=== PATIENT | male | born 1975 | race Two or more races ===

== ENCOUNTER 2017-03-18 16:30 | Inpatient (IN) | payer BC ==
[~2017-03-18] VITALS: Ht 172.7 cm; Wt 30.8 kg
[2017-03-18 16:37] VITALS: BP 126/94
--- NOTE | 2017-03-18 16:43 | Emergency Room Report ---
History of Present Illness General Chief Complaint: Abdominal Pain Source: Patient, Significant Other, EMS Present Illness HPI Patient presents with abdominal pain. It started last night. He returned from [place] yesterday. He's felt nauseated. He's not been moving his bowels. The pain is severe. It doesn't radiate. He denies any fevers but feels chilled. Denies any upper respiratory symptomatology. He was drinking a lot of alcohol. He was not taking in fluids. The patient has a history of dilated cardiomyopathy left bundle branch block. On multiple medications. Didn't take anything for pain but took lorazepam. Slight relief with this. Not suicidal, but knows should not drink alcohol because of cardiomyopathy. Has been through rehab. Allergies: Coded Allergies: No Known Allergies (Unverified , 03/18/17) Patient History Past Medical History: see triage record Pertinent Family History: other - alcoholic brother with necrotic pancreatitis Social History: Reports: alcohol use, Denies: smoking Social History Narrative Reviewed Nursing Documentation: PMH: Agreed, PSxH: Agreed Nursing Documentation-PMH Past Medical History: No History, Except For Hx Cardiac Problems: Yes History Of Psychiatric Problem: Yes - ANXIETY Review of Systems All Other Systems: negative except mentioned in HPI Physical Exam Vital Signs Date Time Temp Pulse Resp B/P Pulse Ox O2 Delivery O2 Flow Rate FiO2 03/18/17 16:34 118 18 126/94 98 Room Air Sp02 EP Interpretation: reviewed, normal General Appearance: GCS 15, mild distress, Chronically Ill Head: normocephalic Eyes: bilateral eye PERRL, bilateral eye normal inspection ENT: moist mucus membranes Neck: supple Respiratory: lungs clear, normal breath sounds Cardiovascular #1: regular rate, rhythm Cardiovascular #2: 2+ radial (R) Gastrointestinal: normal inspection, no mass, no guarding, no rebound, abnormal bowel sounds - decreased, distended, tenderness - epigastric and fairly diffuse, but soft Musculoskeletal: back normal, gait/station normal, normal range of motion Neurologic: alert, oriented x3, grossly normal Psychiatric: depressed affect Skin: warm/dry, other - sallo Medical Decision Making Diagnostic Impression: Primary Impression: Pancreatitis, acute Qualified Codes: K85.20 - Alcohol induced acute pancreatitis without necrosis or infection Additional Impressions: Polycythemia Cardiomyopathy Qualified Codes: I42.9 - Cardiomyopathy, unspecified ER Course Patient presents with severe abdominal pain after return from trip to [place]. Ddx; appendicitis, diverticulitis, traveller's GI'tis, PUD, gastritis, pancreatitis, hepatitis amongst others. With cardiomyopathy, concern over cor involvement. Evaluation with EKG, CXR, labs, CT. Cardiomyopathy seems compensated, though not taking in fluids. Plan hydration cautiously. Treat with analgesia. Labs with polycythemia, elevated lipast, renal insufficiency. CXR unremarkable. CT with standing of pancreas. Discussed with patient and of alcohol's involvement (they are both aware). Discussed JUAN DANIEL and Soheila.. Admit tele (because of h/o cardiomyopathy), Dr. Ponce. Improved with hydration and treatment. Laboratory Tests Test 03/18/17 17:00 03/18/17 18:10 03/18/17 19:09 White Blood Count 9.1 K/UL (4.8-10.8) Red Blood Count 3.89 M/UL (4.70-6.10) L Hemoglobin 22.5 G/DL (14.2-18.0) *H Hematocrit 68.0 % (42.0-52.0) H Mean Corpuscular Volume 180 FL (80-99) H Mean Corpuscular Hemoglobin 57.8 PG (27.0-31.0) H Mean Corpuscular Hemoglobin Concent 33.0 G/DL (32.0-36.0) Red Cell Distribution Width 14.8 % (11.6-14.8) Platelet Count 168 K/UL (150-450) Mean Platelet Volume 9.9 FL (6.5-10.1) Neutrophils (%) (Auto) % (45.0-75.0) Lymphocytes (%) (Auto) % (20.0-45.0) Monocytes (%) (Auto) % (1.0-10.0) Eosinophils (%) (Auto) % (0.0-3.0) Basophils (%) (Auto) % (0.0-2.0) Differential Total Cells Counted 100 Neutrophils % (Manual) 77 % (45-75) H Lymphocytes % (Manual) 10 % (20-45) L Monocytes % (Manual) 6 % (1-10) Eosinophils % (Manual) 2 % (0-3) Basophils % (Manual) 0 % (0-2) Band Neutrophils 5 % (0-8) Platelet Estimate Decreased L Platelet Morphology Normal Polychromasia 1+ Anisocytosis 1+ Macrocytosis 3+ Prothrombin Time Pending Prothrombin Time INR Pending PTT Pending Sodium Level 127 mEQ/L (135-145) L Potassium Level 3.7 mEQ/L (3.4-4.9) Chloride Level 89 mEQ/L (98-107) L Carbon Dioxide Level 21 mEQ/L (20-30) Anion Gap 17 (5-15) H Blood Urea Nitrogen 20 mg/dL (7-23) Creatinine 1.4 mg/dL (0.7-1.2) H Estimate Glomerular Filtration Rate 55.6 mL/min (>60) Glucose Level 109 mg/dL (74-106) H Calcium Level 8.3 mg/dL (8.6-10.2) L Total Bilirubin 3.1 mg/dL (0.0-1.2) H Direct Bilirubin 2.2 mg/dL (0.1-0.3) H Aspartate Amino Transferase (AST) 95 U/L (5-40) H Alanine Aminotransferase (ALT) 5 U/L (3-41) Alkaline Phosphatase 289 U/L (40-129) H Total Protein 6.2 g/dL (6.6-8.7) L Albumin 3.2 g/dL (3.5-5.2) L Globulin 3.0 g/dL Albumin/Globulin Ratio 1.0 (1.0-2.7) Lipase 1461 U/L (< 60) H Digoxin Level 0.5 ng/mL (0.5-2.0) Serum Alcohol < 10 mg/dL Urine Color Brown Urine Appearance Clear Urine pH 6 (4.5-8.0) Urine Specific [place] 1.015 (1.005-1.035) Urine Protein 2+ (NEGATIVE) H Urine Glucose (UA) Negative (NEGATIVE) Urine Ketones 2+ (NEGATIVE) H Urine Occult Blood Negative (NEGATIVE) Urine Nitrite Negative (NEGATIVE) Urine Bilirubin 1+ (NEGATIVE) H Urine Ictotest Positive Urine Urobilinogen 1 MG/DL (0.0-1.0) H Urine Leukocyte Esterase 1+ (NEGATIVE) H Urine RBC 0-2 /HPF (0 - 0) H Urine WBC 0-2 /HPF (0 - 0) Urine Squamous Epithelial Cells None /LPF (NONE/OCC) Urine Bacteria None /HPF (NONE) Urine Opiates Screen Positive (NEGATIVE) H Urine Barbiturates Screen Negative (NEGATIVE) Phencyclidine (PCP) Screen Negative (NEGATIVE) Urine Amphetamines Screen Negative (NEGATIVE) Urine Benzodiazepines Screen Negative (NEGATIVE) Urine Cocaine Screen Negative (NEGATIVE) Urine Marijuana (THC) Screen Negative (NEGATIVE) EKG Diagnostic Results Rate: tachycardiac ST Segments: no acute changes - LBBB Rhythm Strip Diag. Results EP Interpretation: yes Rhythm: no PVC's, no ectopy, other - ST Chest X-Ray Diagnostic Results Chest X-Ray Diagnostic Results : Chest X-Ray Ordered: Yes # of Views/Limited/Complete: 1 View Indication: Other CT/MRI/US Diagnostic Results CT/MRI/US Diagnostic Results : Imaging Test Ordered: abd/pelvis Impression Impression: Findings most compatible with acute pancreatitis. No evidence of associated pancreatic necrosis, duct obstruction, pseudocyst, or abscess Duodenal findings as described most likely reactive to above. Intrinsic pathology not excludable. Recommend followup to resolution, endoscopy if persists. No other evidence of acute abdominopelvic disease, with limitation as described. Subtle but potentially significant abnormalities of the left colon may be missed. Consider colonoscopy as clinically indicated. Hepatomegaly with diffuse steatosis Arteriosclerosis Cardiomegaly Last Vital Signs Date Time Temp Pulse Resp B/P Pulse Ox O2 Delivery O2 Flow Rate FiO2 03/19/17 03:25 98.2 113 20 121/77 96 Room Air Status: improved Disposition: ADMITTED INPATIENT Condition: Serious Jhony Pollack M.D. Mar 18, 2017 16:42
[2017-03-18] MEDS ORDERED: Morphine Sulfate 4mg/ml Inj IVP ONE (16:45)
[2017-03-18 17:22] LABS: MEAN PLATELET VOLUME 9.9 FL (6.5-10.1); PLATELET COUNT 168 K/UL (150-450); RED BLOOD COUNT 3.89 M/UL (4.70-6.10); RED CELL DISTRIBUTION WIDTH 14.8 % (11.6-14.8); WHITE BLOOD COUNT 9.1 K/UL (4.8-10.8)
[2017-03-18] MEDS ORDERED: LORAZEPAM1 MG ORAL (17:23)
[2017-03-18] MEDS ORDERED: DIGOXIN0.125 MG/2 ORAL (17:23)
[2017-03-18] MEDS ORDERED: QUETIAPINE FUMA25 MG ORAL (17:23)
[2017-03-18] MEDS ORDERED: COREG3.125 MG ORAL (17:23)
[2017-03-18] MEDS ORDERED: LISINOPRIL10 MG ORAL (17:23)
[2017-03-18] MEDS ORDERED: BUSPIRONE HCL10 M1 ORAL (17:23)
[2017-03-18] MEDS ORDERED: LASIX20 M1 ORAL (17:23)
[2017-03-18 17:24] VITALS: BP 123/84
[2017-03-18 17:41] LABS: MEAN CORPUSCULAR HEMOGLOBIN 57.8 PG (27.0-31.0); MEAN CORPUSCULAR VOLUME 180 FL (80-99)
[2017-03-18 18:21] LABS: ALCOHOL < 10 mg/dL; ANION GAP 17 (5-15); CALCIUM 8.3 mg/dL (8.6-10.2); CARBON DIOXIDE 21 mEQ/L (20-30); CHLORIDE 89 mEQ/L (98-107); CREATININE 1.4 mg/dL (0.7-1.2); GLOMERULAR FILTRATION RATE 55.6 mL/min (>60); HEMOLYSIS 39; POTASSIUM 3.7 mEQ/L (3.4-4.9); SODIUM 127 mEQ/L (135-145); TOTAL PROTEIN 6.2 g/dL (6.6-8.7)
[2017-03-18 18:26] VITALS: BP 120/84
[2017-03-18 19:00] VITALS: BP 117/83
[2017-03-18] MEDS ORDERED: HYDROmorphone 1mg/ml Carpuject IVP ONE ×2 (19:00→23:00)
[2017-03-18 19:15] LABS: BAND NEUTROPHILS % (MANUAL) 5 % (0-8); EOSINOPHILS % (MANUAL) 2 % (0-3); LYMPHOCYTES % (MANUAL) 10 % (20-45); NEUTROPHILS % (MANUAL) 77 % (45-75); TOTAL CELLS COUNTED 100
[2017-03-18 19:17] LABS: ANISOCYTOSIS 1+; BASOPHILS % (MANUAL) 0 % (0-2); MACROCYTES 3+; PLATELET ESTIMATE DECREASED; PLATELET MORPHOLOGY NORMAL; POLYCHROMASIA 1+
[2017-03-18 19:24] LABS: APPEARANCE,URINE CLEAR; KETONES,URINE 2+ (NEGATIVE); LEUKOCYTE ESTERASE ,URINE 1+ (NEGATIVE); NITRITE,URINE NEGATIVE (NEGATIVE); PH,URINE 6 (4.5-8.0); PROTEIN,URINE 2+ (NEGATIVE); UROBILINOGEN,URINE 1 MG/DL (0.0-1.0)
[2017-03-18 19:28] LABS: ICTOTEST POSITIVE
[2017-03-18 19:35] LABS: RBC,URINE 0-2 /HPF (0 - 0); WBC,URINE 0-2 /HPF (0 - 0)
[2017-03-18 19:39] LABS: BILIRUBIN,DIRECT 2.2 mg/dL (0.1-0.3)
[2017-03-18 19:50] LABS: ALANINE AMINOTRANSFERASE 5 U/L (3-41)
[2017-03-18 19:55] LABS: LIPASE 1461 U/L (< 60)
[2017-03-18 20:34] LABS: ASPARTATE AMINO TRANSFERASE 95 U/L (5-40)
[2017-03-18 21:05] VITALS: BP 110/84
[2017-03-18] MEDS ORDERED: LORazepam Inj 2mg/ml 1ml IV ONE (23:15)
[2017-03-19] VITALS: BP 121/77
[2017-03-19] MEDS ORDERED: Norco 10mg/325mg tab ORAL PRN ×2 (01:15→08:39)
[2017-03-19] MEDS ORDERED: Morphine Sulfate 2mg/ml Inj IVP PRN (01:15)
[2017-03-19] MEDS ORDERED: D5 1/2NS w/KCl 20mEq 1,000 ML IV SCH (02:00)
[2017-03-19 03:25] VITALS: BP 121/77
[2017-03-19 07:58] VITALS: BP 125/89
[2017-03-19] MEDS: HYDROmorphone 1mg/ml Carpuject IVP PRN ×4 (08:51→21:44)
[2017-03-19 09:37] LABS: MEAN CORPUSCULAR HEMOGLOBIN 35.3 PG (27.0-31.0); MEAN CORPUSCULAR HGB CONC 33.9 G/DL (32.0-36.0); MEAN CORPUSCULAR VOLUME 104 FL (80-99); MEAN PLATELET VOLUME 13.7 FL (6.5-10.1); RED BLOOD COUNT 3.53 M/UL (4.70-6.10); RED CELL DISTRIBUTION WIDTH 14.6 % (11.6-14.8); WHITE BLOOD COUNT 9.4 K/UL (4.8-10.8)
[2017-03-19 09:39] LABS: PLATELET COUNT 166 K/UL (150-450)
--- NOTE | 2017-03-19 10:06 | History and Physical ---
History of Present Illness General Date patient seen: Mar 19, 2017 Reason for Hospitalization: Abdominal Pain Present Illness HPI 42 y/o male with history of cardiomyopathy with last known EF 27-29%, LBBB, and ETOH abuse who presented to the ED c/o abdominal pain. He also reported nausea but no vomiting. He states that he went on a drinking binge in [place]. He returned Tuesday night and went to work on but started feeling weak. He does admit to long history of ETOH abuse and is seeing an [facility] management specialist/Psychiatrist. He states that he is with 2 kids and does not want to lose his family. He denies suicidal ideation. In the ED, his lipase levels were elevated and was admitted for acute ETOH pancreatitis. Allergies: Coded Allergies: No Known Allergies (Unverified , 03/18/17) Medication History Scheduled Buspirone Hcl* (Buspirone Hcl*), 10 MG ORAL TWICE A DAY, (Reported) Carvedilol (Coreg), 3.125 MG ORAL EVERY 12 HOURS, (Reported) Digoxin* (Digoxin*), 0.125 MG ORAL DAILY, (Reported) Furosemide* (Lasix*), 20 MG ORAL DAILY, (Reported) Lisinopril* (Lisinopril*), 5 MG ORAL DAILY, (Reported) Lorazepam* (Lorazepam*), 1 MG ORAL THREE TIMES A DAY, (Reported) Quetiapine Fumarate* (Seroquel*), 25 MG ORAL DAILY, (Reported) Patient History History Provided By: Patient Healthcare decision maker Resuscitation status Full Code Advanced Directive on File No Past Medical/Surgical History Past Medical/Surgical History: (1) LBBB (left bundle branch block) (2) ETOH abuse (3) Cardiomyopathy Social History Social History: (1) ETOH abuse Review of Systems All Other Systems: negative except mentioned in HPI Physical Exam General Appearance: WD/WN, no apparent distress HEENT: normocephalic, atraumatic Neck: supple Respiratory/Chest: lungs clear Cardiovascular/Chest: normal rate, regular rhythm Abdomen: soft, guarding, tender Extremities: non-tender, no edema Neurologic: alert, oriented x 3 Physical Exam Narrative bilateral hand tremors. Last 24 Hour Vital Signs Date Time Temp Pulse Resp B/P Pulse Ox O2 Delivery O2 Flow Rate FiO2 03/19/17 07:58 99.7 110 20 125/89 94 Room Air 03/19/17 04:00 110 03/19/17 03:25 98.2 113 20 121/77 96 Room Air 03/19/17 00:20 99.1 108 18 110/84 95 Room Air 03/19/17 00:00 98.2 113 22 121/77 91 Room Air 03/18/17 23:38 99.1 03/18/17 21:05 99.1 108 18 110/84 95 Room Air 03/18/17 19:00 99.1 109 20 117/83 95 Room Air 03/18/17 18:26 105 18 120/84 98 Room Air 03/18/17 17:24 112 18 123/84 98 Room Air 03/18/17 16:37 18 126/94 98 Room Air 03/18/17 16:34 118 18 126/94 98 Room Air Intake and Output 03/18/17 03/19/17 19:00 07:00 Intake Total 1000 ml 240 ml Balance 1000 ml 240 ml Intake Oral 0 ml IV Total 1000 ml 240 ml # Bowel Movements 1 Laboratory Tests Test 03/18/17 17:00 03/18/17 18:10 03/18/17 19:09 03/19/17 07:20 White Blood Count 9.1 K/UL (4.8-10.8) 9.4 K/UL (4.8-10.8) Red Blood Count 3.89 M/UL (4.70-6.10) L 3.53 M/UL (4.70-6.10) L Hemoglobin 22.5 G/DL (14.2-18.0) *H 12.5 G/DL (14.2-18.0) #L Hematocrit 68.0 % (42.0-52.0) H 36.8 % (42.0-52.0) #L Mean Corpuscular Volume 180 FL (80-99) H 104 FL (80-99) #H Mean Corpuscular Hemoglobin 57.8 PG (27.0-31.0) H 35.3 PG (27.0-31.0) H Mean Corpuscular Hemoglobin Concent 33.0 G/DL (32.0-36.0) 33.9 G/DL (32.0-36.0) Red Cell Distribution Width 14.8 % (11.6-14.8) 14.6 % (11.6-14.8) Platelet Count 168 K/UL (150-450) 166 K/UL (150-450) Mean Platelet Volume 9.9 FL (6.5-10.1) 13.7 FL (6.5-10.1) H Neutrophils (%) (Auto) % (45.0-75.0) % (45.0-75.0) Lymphocytes (%) (Auto) % (20.0-45.0) % (20.0-45.0) Monocytes (%) (Auto) % (1.0-10.0) % (1.0-10.0) Eosinophils (%) (Auto) % (0.0-3.0) % (0.0-3.0) Basophils (%) (Auto) % (0.0-2.0) % (0.0-2.0) Differential Total Cells Counted 100 Neutrophils % (Manual) 77 % (45-75) H Pending Lymphocytes % (Manual) 10 % (20-45) L Pending Monocytes % (Manual) 6 % (1-10) Eosinophils % (Manual) 2 % (0-3) Basophils % (Manual) 0 % (0-2) Band Neutrophils 5 % (0-8) Platelet Estimate Decreased L Pending Platelet Morphology Normal Pending Polychromasia 1+ Anisocytosis 1+ Macrocytosis 3+ Prothrombin Time Pending Prothromb Time International Ratio Pending Activated Partial Thromboplast Time Pending Sodium Level 127 mEQ/L (135-145) L Pending Potassium Level 3.7 mEQ/L (3.4-4.9) Pending Chloride Level 89 mEQ/L (98-107) L Pending Carbon Dioxide Level 21 mEQ/L (20-30) Pending Anion Gap 17 (5-15) H Blood Urea Nitrogen 20 mg/dL (7-23) Pending Creatinine 1.4 mg/dL (0.7-1.2) H Pending Estimat Glomerular Filtration Rate 55.6 mL/min (>60) Pending Glucose Level 109 mg/dL (74-106) H Pending Calcium Level 8.3 mg/dL (8.6-10.2) L Pending Total Bilirubin 3.1 mg/dL (0.0-1.2) H Pending Direct Bilirubin 2.2 mg/dL (0.1-0.3) H Aspartate Amino Transf (AST/SGOT) 95 U/L (5-40) H Pending Alanine Aminotransferase (ALT/SGPT) 5 U/L (3-41) Pending Alkaline Phosphatase 289 U/L (40-129) H Pending Total Protein 6.2 g/dL (6.6-8.7) L Pending Albumin 3.2 g/dL (3.5-5.2) L Pending Globulin 3.0 g/dL Pending Albumin/Globulin Ratio 1.0 (1.0-2.7) Lipase 1461 U/L (< 60) H Pending Digoxin Level 0.5 ng/mL (0.5-2.0) Serum Alcohol < 10 mg/dL Urine Color Brown Urine Appearance Clear Urine pH 6 (4.5-8.0) Urine Specific [place] 1.015 (1.005-1.035) Urine Protein 2+ (NEGATIVE) H Urine Glucose (UA) Negative (NEGATIVE) Urine Ketones 2+ (NEGATIVE) H Urine Occult Blood Negative (NEGATIVE) Urine Nitrite Negative (NEGATIVE) Urine Bilirubin 1+ (NEGATIVE) H Urine Ictotest Positive Urine Urobilinogen 1 MG/DL (0.0-1.0) H Urine Leukocyte Esterase 1+ (NEGATIVE) H Urine RBC 0-2 /HPF (0 - 0) H Urine WBC 0-2 /HPF (0 - 0) Urine Squamous Epithelial Cells None /LPF (NONE/OCC) Urine Bacteria None /HPF (NONE) Urine Opiates Screen Positive (NEGATIVE) H Urine Barbiturates Screen Negative (NEGATIVE) Phencyclidine (PCP) Screen Negative (NEGATIVE) Urine Amphetamines Screen Negative (NEGATIVE) Urine Benzodiazepines Screen Negative (NEGATIVE) Urine Cocaine Screen Negative (NEGATIVE) Urine Marijuana (THC) Screen Negative (NEGATIVE) Amylase Level Pending Height (Feet): 5 Height (Inches): 8.00 Weight (Pounds): 68 Medications Current Medications Medications (Trade) Dose Ordered Sig/Natalya Route PRN Reason Start Time Stop Time Status Last Admin Dose Admin Acetaminophen (Tylenol) 650 mg Q4H PRN ORAL Mild Pain/Temp > 100.5 03/19/17 01:15 04/18/17 01:14 Acetaminophen/ Hydrocodone Bitart ([place] 10/325) 1 ea Q4H PRN ORAL Moderate Pain (Pain Scale 4-6) 03/19/17 08:39 03/26/17 01:14 Dextrose (Dextrose 50%) STAT PRN IV Hypoglycemia 03/19/17 04:00 04/18/17 03:59 Dextrose/ Electrolytes (D5 0.45%NS W/ KCl 20mEq) 1,000 ml @ 80 mls/hr [id number] IV 03/19/17 02:00 04/18/17 01:59 03/19/17 02:00 Hydromorphone HCl (Dilaudid) 1 mg Q4H PRN IVP Severe Pain (Pain Scale 7-10) 03/19/17 08:45 03/26/17 08:44 03/19/17 08:51 Ondansetron HCl (Zofran) 4 mg Q6H PRN IVP Nausea & Vomiting 03/19/17 01:15 04/18/17 01:14 Assessment/Plan Problem List: (1) Abdominal pain ICD Codes: R10.9 - Unspecified abdominal pain SNOMED: 85522452 (2) Cardiomyopathy ICD Codes: I42.9 - Cardiomyopathy, unspecified SNOMED: 23057470 Qualifiers: Qualified Codes: I42.9 - Cardiomyopathy, unspecified (3) Polycythemia Assessment & Plan: resolved. likely 2/2 severe dehydration or lab error. ICD Codes: D75.1 - Secondary polycythemia SNOMED: 219587388 (4) Pancreatitis, acute ICD Codes: K85.90 - Acute pancreatitis without necrosis or infection, unspecified SNOMED: 715273587 Qualifiers: Qualified Codes: K85.20 - Alcohol induced acute pancreatitis without necrosis or infection (5) LBBB (left bundle branch block) ICD Codes: I44.7 - Left bundle-branch block, unspecified SNOMED: 41425290 Assessment/Plan IVF with thiamine and MVI. monitor for fluid overload. strict I/O's. NPO. advance as tolerated. DVT ppx. D/w Dr. Ponce. D/r RN JERROD Lozada Mar 19, 2017 10:06
[2017-03-19] MEDS ORDERED: LORazepam Inj 2mg/ml 1ml IVP PRN (10:15)
[2017-03-19 10:21] LABS: ALBUMIN/GLOBULIN RATIO 0.9 (1.0-2.7); AMYLASE 105 U/L (10-110); ANION GAP 17 (5-15); CALCIUM 6.5 mg/dL (8.6-10.2); CARBON DIOXIDE 18 mEQ/L (20-30); CHLORIDE 87 mEQ/L (98-107); CREATININE 1.3 mg/dL (0.7-1.2); GLOMERULAR FILTRATION RATE > 60 mL/min (>60); HEMOLYSIS 86; POTASSIUM 3.4 mEQ/L (3.4-4.9); SODIUM 122 mEQ/L (135-145)
[2017-03-19 10:24] LABS: BAND NEUTROPHILS % (MANUAL) 0 % (0-8); BASOPHILS % (MANUAL) 0 % (0-2); EOSINOPHILS % (MANUAL) 1 % (0-3); LYMPHOCYTES % (MANUAL) 11 % (20-45); NEUTROPHILS % (MANUAL) 83 % (45-75); PLATELET ESTIMATE ADEQUATE; PLATELET MORPHOLOGY NORMAL; TOTAL CELLS COUNTED 100
[2017-03-19 10:26] LABS: ALANINE AMINOTRANSFERASE 5 U/L (3-41); ASPARTATE AMINO TRANSFERASE 63 U/L (5-40)
[2017-03-19 10:33] LABS: LIPASE 444 U/L (< 60)
[2017-03-19 10:52] LABS: BILIRUBIN,DIRECT 1.8 mg/dL (0.1-0.3)
[2017-03-19 11:53] VITALS: BP 135/76
[2017-03-19] MEDS: LORazepam 1mg tab ORAL SCH ×3 (12:46→17:43)
[2017-03-19] MEDS: THIAMINE HCL IV SCH (12:46)
[2017-03-19] MEDS: MULTIVITAMIN IV SCH (12:46)
[2017-03-19] MEDS: [UNRECOGNIZED DRUG - OTHER] IV SCH (12:46)
--- NOTE | 2017-03-19 14:35 | Cardiac Electrophysiology PN ---
Subjective Subjective [id number] Objective Last 24 Hour Vital Signs Date Time Temp Pulse Resp B/P Pulse Ox O2 Delivery O2 Flow Rate FiO2 03/19/17 12:00 105 03/19/17 11:53 99.3 109 21 135/76 99 Room Air 03/19/17 08:00 114 03/19/17 07:58 99.7 110 20 125/89 94 Room Air 03/19/17 04:00 110 03/19/17 03:25 98.2 113 20 121/77 96 Room Air 03/19/17 00:20 99.1 108 18 110/84 95 Room Air 03/19/17 00:00 98.2 113 22 121/77 91 Room Air 03/18/17 23:38 99.1 03/18/17 21:05 99.1 108 18 110/84 95 Room Air 03/18/17 19:00 99.1 109 20 117/83 95 Room Air 03/18/17 18:26 105 18 120/84 98 Room Air 03/18/17 17:24 112 18 123/84 98 Room Air 03/18/17 16:37 18 126/94 98 Room Air 03/18/17 16:34 118 18 126/94 98 Room Air Intake and Output 03/18/17 03/19/17 19:00 07:00 Intake Total 1000 ml 240 ml Balance 1000 ml 240 ml Intake Oral 0 ml IV Total 1000 ml 240 ml # Bowel Movements 1 Laboratory Tests Test 03/18/17 17:00 03/18/17 18:10 03/18/17 19:09 03/19/17 07:20 White Blood Count 9.1 K/UL (4.8-10.8) 9.4 K/UL (4.8-10.8) Red Blood Count 3.89 M/UL (4.70-6.10) L 3.53 M/UL (4.70-6.10) L Hemoglobin 22.5 G/DL (14.2-18.0) *H 12.5 G/DL (14.2-18.0) #L Hematocrit 68.0 % (42.0-52.0) H 36.8 % (42.0-52.0) #L Mean Corpuscular Volume 180 FL (80-99) H 104 FL (80-99) #H Mean Corpuscular Hemoglobin 57.8 PG (27.0-31.0) H 35.3 PG (27.0-31.0) H Mean Corpuscular Hemoglobin Concent 33.0 G/DL (32.0-36.0) 33.9 G/DL (32.0-36.0) Red Cell Distribution Width 14.8 % (11.6-14.8) 14.6 % (11.6-14.8) Platelet Count 168 K/UL (150-450) 166 K/UL (150-450) Mean Platelet Volume 9.9 FL (6.5-10.1) 13.7 FL (6.5-10.1) H Neutrophils (%) (Auto) % (45.0-75.0) % (45.0-75.0) Lymphocytes (%) (Auto) % (20.0-45.0) % (20.0-45.0) Monocytes (%) (Auto) % (1.0-10.0) % (1.0-10.0) Eosinophils (%) (Auto) % (0.0-3.0) % (0.0-3.0) Basophils (%) (Auto) % (0.0-2.0) % (0.0-2.0) Differential Total Cells Counted 100 100 Neutrophils % (Manual) 77 % (45-75) H 83 % (45-75) H Lymphocytes % (Manual) 10 % (20-45) L 11 % (20-45) L Monocytes % (Manual) 6 % (1-10) 5 % (1-10) Eosinophils % (Manual) 2 % (0-3) 1 % (0-3) Basophils % (Manual) 0 % (0-2) 0 % (0-2) Band Neutrophils 5 % (0-8) 0 % (0-8) Platelet Estimate Decreased L Adequate Platelet Morphology Normal Normal Polychromasia 1+ Anisocytosis 1+ Macrocytosis 3+ Prothrombin Time Pending Prothromb Time International Ratio Pending Activated Partial Thromboplast Time Pending Sodium Level 127 mEQ/L (135-145) L 122 mEQ/L (135-145) L Potassium Level 3.7 mEQ/L (3.4-4.9) 3.4 mEQ/L (3.4-4.9) Chloride Level 89 mEQ/L (98-107) L 87 mEQ/L (98-107) L Carbon Dioxide Level 21 mEQ/L (20-30) 18 mEQ/L (20-30) L Anion Gap 17 (5-15) H 17 (5-15) H Blood Urea Nitrogen 20 mg/dL (7-23) 11 mg/dL (7-23) Creatinine 1.4 mg/dL (0.7-1.2) H 1.3 mg/dL (0.7-1.2) H Estimat Glomerular Filtration Rate 55.6 mL/min (>60) > 60 mL/min (>60) Glucose Level 109 mg/dL (74-106) H 140 mg/dL (74-106) H Calcium Level 8.3 mg/dL (8.6-10.2) L 6.5 mg/dL (8.6-10.2) #L Total Bilirubin 3.1 mg/dL (0.0-1.2) H 2.6 mg/dL (0.0-1.2) H Direct Bilirubin 2.2 mg/dL (0.1-0.3) H 1.8 mg/dL (0.1-0.3) H Aspartate Amino Transf (AST/SGOT) 95 U/L (5-40) H 63 U/L (5-40) H Alanine Aminotransferase (ALT/SGPT) 5 U/L (3-41) 5 U/L (3-41) Alkaline Phosphatase 289 U/L (40-129) H 184 U/L (40-129) H Total Protein 6.2 g/dL (6.6-8.7) L 5.0 g/dL (6.6-8.7) L Albumin 3.2 g/dL (3.5-5.2) L 2.4 g/dL (3.5-5.2) L Globulin 3.0 g/dL 2.6 g/dL Albumin/Globulin Ratio 1.0 (1.0-2.7) 0.9 (1.0-2.7) L Lipase 1461 U/L (< 60) H 444 U/L (< 60) H Digoxin Level 0.5 ng/mL (0.5-2.0) Serum Alcohol < 10 mg/dL Urine Color Brown Urine Appearance Clear Urine pH 6 (4.5-8.0) Urine Specific [place] 1.015 (1.005-1.035) Urine Protein 2+ (NEGATIVE) H Urine Glucose (UA) Negative (NEGATIVE) Urine Ketones 2+ (NEGATIVE) H Urine Occult Blood Negative (NEGATIVE) Urine Nitrite Negative (NEGATIVE) Urine Bilirubin 1+ (NEGATIVE) H Urine Ictotest Positive Urine Urobilinogen 1 MG/DL (0.0-1.0) H Urine Leukocyte Esterase 1+ (NEGATIVE) H Urine RBC 0-2 /HPF (0 - 0) H Urine WBC 0-2 /HPF (0 - 0) Urine Squamous Epithelial Cells None /LPF (NONE/OCC) Urine Bacteria None /HPF (NONE) Urine Opiates Screen Positive (NEGATIVE) H Urine Barbiturates Screen Negative (NEGATIVE) Phencyclidine (PCP) Screen Negative (NEGATIVE) Urine Amphetamines Screen Negative (NEGATIVE) Urine Benzodiazepines Screen Negative (NEGATIVE) Urine Cocaine Screen Negative (NEGATIVE) Urine Marijuana (THC) Screen Negative (NEGATIVE) Red Blood Cell Morphology Normal Amylase Level 105 U/L (10-110) ONEIL MARTINI Mar 19, 2017 14:35
[2017-03-19 15:31] VITALS: BP 128/84
[2017-03-19] MEDS: BusPIRone 10mg Tab ORAL SCH ×2 (17:42→17:43)
[2017-03-19 18:35] LABS: APPEARANCE,URINE CLEAR; KETONES,URINE NEGATIVE (NEGATIVE); LEUKOCYTE ESTERASE ,URINE NEGATIVE (NEGATIVE); NITRITE,URINE NEGATIVE (NEGATIVE); PH,URINE 6 (4.5-8.0); PROTEIN,URINE 3+ (NEGATIVE); UROBILINOGEN,URINE 4 MG/DL (0.0-1.0)
[2017-03-19 19:11] LABS: ICTOTEST POS
[2017-03-19 19:26] LABS: RBC,URINE 0 /HPF (0 - 0); TRANSITIONAL EPI CELLS,URINE FEW /LPF
[2017-03-19 19:27] LABS: AMORPHOUS SEDIMENT,UR FEW /LPF
[2017-03-19 20:00] VITALS: BP 118/77
[2017-03-19] MEDS: Heparin 5000 units/ml inj SUBQ SCH (21:00)
[2017-03-20] VITALS: BP 124/80
--- NOTE | 2017-03-20 01:15 | Consultation ---
DATE OF CONSULTATION: 03/19/2017 NOTE: "POOR AUDIO QUALITY" CARDIOLOGY CONSULTATION CONSULTING PHYSICIAN: Antelmo Murphy M.D. REFERRING PHYSICIAN: Higinio Ponce M.D. REASON FOR CONSULTATION: Management of congestive heart failure and left bundle-branch block. History Of Present Illness: The patient is a 42-year-old gentleman with history of acute cardiomyopathy in the setting of left bundle-branch block, who was initially diagnosed in 2011 at [facility]. At that time, the patient underwent coronary angiography that did not show any acute obstructive disease. The patient subsequently was discharged home and despite optimized medical therapy, his ejection fraction has remained less than 30%. He had echocardiogram in April of 2016 that showed ejection fraction of only 23%. The patient has been already on optimized medical therapy under the management Dr. Morales . The patient still continues to drink alcohol and was admitted to the hospital with abdominal pain and nausea as he was having binge drinking in [place]. He came back 02:01 night and went to work on , but started feeling weak. He has also been under evaluation psychiatrist. At the time of my evaluation, he denies any chest pain, palpitation, or shortness of breath. The patient was admitted for acute alcoholic pancreatitis. At the time of my evaluation, his is at the bedside. PAST MEDICAL HISTORY: 1. Nonischemic dilated cardiomyopathy. 2. Left bundle-branch block. 3. History of alcohol use. MEDICATIONS: At home include Coreg 3.125 mg twice a day, digoxin 0.125 mg daily, lisinopril 5 mg daily, Aldactone 25 mg daily, Lasix 20 mg daily, and also Seroquel 25 mg daily. SOCIAL HISTORY: He lives at home with his , has 2 children. Does not do any drugs, however, he drinks alcohol. FAMILY HISTORY: Noncontributory. REVIEW OF SYSTEMS: His review of systems was performed and was negative other than what was mentioned in the history of present illness. PHYSICAL EXAMINATION: VITAL SIGNS: Blood pressure is 135/76, pulse is 105, respirations 18, and temperature is 99.2 degrees. NECK: Shows mild no JVD. LUNGS: Clear. CARDIOVASCULAR: Shows regular S1 and S2 with no gallop. Tachycardic. ABDOMEN: Soft. EXTREMITIES: Trace pitting edema. LABORATORY AND DIAGNOSTIC DATA: His labs show white count of 9.4, hemoglobin 12.5, hematocrit 36.8, and platelet count is 166,000. His sodium was 122, potassium is 3.4, BUN of 11, creatinine 1.3, and glucose of 140. Alkaline phosphatase is 184. His lipase initially was 1461 and today is 444. His digoxin level is 0.5. ASSESSMENT AND PLAN: 1. Congestive heart failure. This is due to patient's severe cardiomyopathy. This patient has already been optimized on medical therapy. Continue digoxin, lisinopril, Coreg, Aldactone, and Lasix. The patient would benefit from cardiac resynchronization therapy in view of underlying left bundle-branch block. However, needs to stop drinking and then he would 35%, would benefit from defibrillator implantation. 2. Underlying complete left bundle-branch block. 3. Alcoholic pancreatitis, on thiamine and folate . 4. on Seroquel Psychiatry. 5. Severe hyponatremia. The case was discussed with the patient, nurse as well as the patient 's at the bedside. Thank you very much, Dr. Ponce, for allowing me to participate in the care of this patient. Please do not hesitate to contact me for any questions regarding my evaluation. Antelmo Murphy M.D. DR: MARCEL JOB#: [id number] CC:
[2017-03-20] MEDS: HYDROmorphone 1mg/ml Carpuject IVP PRN ×3 (01:52→10:01)
[2017-03-20 04:00] VITALS: BP 118/78
[2017-03-20 08:00] VITALS: BP 112/69
[2017-03-20 08:15] LABS: MEAN CORPUSCULAR HEMOGLOBIN 35.5 PG (27.0-31.0); MEAN CORPUSCULAR HGB CONC 34.2 G/DL (32.0-36.0); MEAN CORPUSCULAR VOLUME 104 FL (80-99); MEAN PLATELET VOLUME 9.7 FL (6.5-10.1); PLATELET COUNT 121 K/UL (150-450); RED BLOOD COUNT 3.23 M/UL (4.70-6.10); WHITE BLOOD COUNT 10.2 K/UL (4.8-10.8)
[2017-03-20 08:35] LABS: ANION GAP 13 (5-15); ASPARTATE AMINO TRANSFERASE 93 U/L (5-40); CALCIUM 6.9 mg/dL (8.6-10.2); CARBON DIOXIDE 22 mEQ/L (20-30); CHLORIDE 98 mEQ/L (98-107); CREATININE 1.1 mg/dL (0.7-1.2); GLOMERULAR FILTRATION RATE > 60 mL/min (>60); HEMOLYSIS 22; POTASSIUM 3.6 mEQ/L (3.4-4.9); SODIUM 133 mEQ/L (135-145); TOTAL PROTEIN 5.6 g/dL (6.6-8.7)
[2017-03-20 08:36] LABS: AMYLASE 37 U/L (10-110); LIPASE 149 U/L (< 60); PROTHROMBIN TIME 10.1 SEC (9.30-11.50)
[2017-03-20] MEDS: BusPIRone 10mg Tab ORAL SCH (08:46)
[2017-03-20] MEDS: LORazepam 1mg tab ORAL SCH (08:46)
[2017-03-20] MEDS: Heparin 5000 units/ml inj SUBQ SCH (08:47)
[2017-03-20 08:50] LABS: ALANINE AMINOTRANSFERASE 30 U/L (3-41)
[2017-03-20 08:56] VITALS: BP 112/69
[2017-03-20] MEDS ORDERED: Digoxin 0.125mg tab ORAL SCH (09:00)
[2017-03-20] MEDS ORDERED: Lisinopril 2.5mg tab ORAL SCH (09:00)
[2017-03-20] MEDS ORDERED: Spironolactone 25mg tab ORAL SCH (09:00)
[2017-03-20 09:09] LABS: BAND NEUTROPHILS % (MANUAL) 0 % (0-8); BASOPHILS % (MANUAL) 0 % (0-2); EOSINOPHILS % (MANUAL) 0 % (0-3); HYPOCHROMASIA 1+; LYMPHOCYTES % (MANUAL) 6 % (20-45); MACROCYTES 1+; NEUTROPHILS % (MANUAL) 92 % (45-75); PLATELET ESTIMATE DECREASED; PLATELET MORPHOLOGY NORMAL; TOTAL CELLS COUNTED 100
[2017-03-20 09:11] LABS: BILIRUBIN,DIRECT 2.3 mg/dL (0.1-0.3)
--- NOTE | 2017-03-20 10:41 | Nephrology Progress Note ---
Assessment/Plan Problem List: (1) Abdominal pain (2) Cardiomyopathy (3) Polycythemia Assessment: resolved. likely 2/2 severe dehydration or lab error. (4) Pancreatitis, acute (5) LBBB (left bundle branch block) (6) Elevated LFTs (7) Hyponatremia Assessment: improving (8) JASPREET (acute kidney injury) Assessment: improving Plan cont banana bag. monitor for DTs. GI following. ABD U/S ordered to evaluate the liver r/o cirrhosis. Cardiology following. Recs appreciated. Advance diet. Subjective Subjective feels better. wants to go home. Objective Objective Last 24 Hour Vital Signs Date Time Temp Pulse Resp B/P Pulse Ox O2 Delivery O2 Flow Rate FiO2 03/20/17 08:56 112/69 03/20/17 08:55 69 03/20/17 08:54 69 112/69 03/20/17 08:00 98.1 119 20 112/69 94 Room Air 03/20/17 08:00 113 03/20/17 04:00 98.0 106 20 118/78 99 Room Air 03/20/17 04:00 117 03/20/17 00:00 102 03/20/17 00:00 98.4 120 20 124/80 99 Room Air 03/19/17 20:56 115 120/77 03/19/17 20:00 97.9 114 20 118/77 98 Room Air 03/19/17 20:00 115 03/19/17 16:00 107 03/19/17 15:31 99.1 106 22 128/84 100 Room Air 03/19/17 12:00 105 03/19/17 11:53 99.3 109 21 135/76 99 Room Air Intake and Output 03/19/17 03/20/17 19:00 07:00 Intake Total 749.33 ml 531 ml Output Total 300 ml Balance 749.33 ml 231 ml IV Total 749.33 ml 531 ml Output Urine Total 300 ml # Voids 1 5 # Bowel Movements 1 Laboratory Tests 03/19/17 18:10: Urine Color Brown, Urine Appearance Clear, Urine pH 6, Urine Specific [place] 1.025, Urine Protein 3+H, Urine Glucose (UA) Negative, Urine Ketones Negative, Urine Occult Blood 4+H, Urine Nitrite Negative, Urine Bilirubin 2+H, Urine Ictotest Pos, Urine Urobilinogen 4H, Urine Leukocyte Esterase Negative, Urine RBC 0, Urine WBC 2-4, Urine Squamous Epithelial Cells None, Urine Transitional Epithelial Cells FewH, Urine Amorphous Sediment FewH, Urine Bacteria None 03/20/17 07:20: White Blood Count 10.2, Red Blood Count 3.23L, Hemoglobin 11.5L, Hematocrit 33.5L, Mean Corpuscular Volume 104H, Mean Corpuscular Hemoglobin 35.5H, Mean Corpuscular Hemoglobin Concent 34.2, Red Cell Distribution Width 15.0H, Platelet Count 121L, Mean Platelet Volume 9.7, Neutrophils (%) (Auto) , Lymphocytes (%) (Auto) , Monocytes (%) (Auto) , Eosinophils (%) (Auto) , Basophils (%) (Auto) , Differential Total Cells Counted 100, Neutrophils % ( Manual) 92H, Lymphocytes % (Manual) 6L, Monocytes % (Manual) 2, Eosinophils % ( Manual) 0, Basophils % (Manual) 0, Band Neutrophils 0, Platelet Estimate DecreasedL, Platelet Morphology Normal, Hypochromasia 1+, Macrocytosis 1+, Prothrombin Time 10.1, Prothromb Time International Ratio 1.0, Activated Partial Thromboplast Time 29, Sodium Level 133#L, Potassium Level 3.6, Chloride Level 98, Carbon Dioxide Level 22, Anion Gap 13, Blood Urea Nitrogen 8, Creatinine 1.1, Estimat Glomerular Filtration Rate > 60, Glucose Level 118H, Calcium Level 6.9L, Total Bilirubin 3.2H, Direct Bilirubin 2.3H, Aspartate Amino Transf (AST/SGOT) 93H, Alanine Aminotransferase (ALT/SGPT) 30, Alkaline Phosphatase 158H, Pro-B-Type Natriuretic Peptide 6836H, Total Protein 5.6L, Albumin 2.8L, Globulin 2.8, Albumin/Globulin Ratio 1.0, Amylase Level 37, Lipase 149H Height (Feet): 5 Height (Inches): 8.00 Weight (Pounds): 68 General Appearance: no apparent distress Cardiovascular: normal rate, regular rhythm Respiratory/Chest: lungs clear Abdomen: non tender, soft Extremities: non-pitting Neurologic: alert, oriented x 3 Objective bilateral hand tremors JERROD BUCHANAN Mar 20, 2017 10:41
[2017-03-20] MEDS: THIAMINE HCL IV SCH (12:00)
[2017-03-20] MEDS: [UNRECOGNIZED DRUG - OTHER] IV SCH (12:00)
[2017-03-20] MEDS: MULTIVITAMIN IV SCH (12:00)
--- NOTE | 2017-03-20 12:58 | Cardiac Electrophysiology PN ---
Assessment/Plan Assessment/Plan 1. Congestive heart failure due to acute on chronic systolic dysfunction with EF 20% more than a year.This patient has already been optimized on medical therapy on digoxin, lisinopril, Coreg, Aldactone, and Lasix. The patient would benefit from cardiac resynchronization therapy and ICD in view of underlying left bundle-branch block. However, needs to stop drinking for at lease 3 months and then if EF remains less than 35%, would benefit from defibrillator implantation. 2. Complete left bundle-branch block. 3. Alcoholic pancreatitis, on thiamine and folate. 4. Depression on Seroquel per Psychiatry. 5. Severe hyponatremia 122 improved to 133 DW RN Subjective Subjective Alert and oriented but is upset and wants to sign out AMA. RN at bedside. Objective Last 24 Hour Vital Signs Date Time Temp Pulse Resp B/P Pulse Ox O2 Delivery O2 Flow Rate FiO2 03/20/17 08:56 112/69 03/20/17 08:55 69 03/20/17 08:54 69 112/69 03/20/17 08:00 98.1 119 20 112/69 94 Room Air 03/20/17 08:00 113 03/20/17 04:00 98.0 106 20 118/78 99 Room Air 03/20/17 04:00 117 03/20/17 00:00 102 03/20/17 00:00 98.4 120 20 124/80 99 Room Air 03/19/17 20:56 115 120/77 03/19/17 20:00 97.9 114 20 118/77 98 Room Air 03/19/17 20:00 115 03/19/17 16:00 107 03/19/17 15:31 99.1 106 22 128/84 100 Room Air Intake and Output 03/19/17 03/20/17 19:00 07:00 Intake Total 749.33 ml 531 ml Output Total 300 ml Balance 749.33 ml 231 ml IV Total 749.33 ml 531 ml Output Urine Total 300 ml # Voids 1 5 # Bowel Movements 1 Laboratory Tests Test 03/19/17 18:10 03/20/17 07:20 Urine Color Brown Urine Appearance Clear Urine pH 6 (4.5-8.0) Urine Specific [place] 1.025 (1.005-1.035) Urine Protein 3+ (NEGATIVE) H Urine Glucose (UA) Negative (NEGATIVE) Urine Ketones Negative (NEGATIVE) Urine Occult Blood 4+ (NEGATIVE) H Urine Nitrite Negative (NEGATIVE) Urine Bilirubin 2+ (NEGATIVE) H Urine Ictotest Pos Urine Urobilinogen 4 MG/DL (0.0-1.0) H Urine Leukocyte Esterase Negative (NEGATIVE) Urine RBC 0 /HPF (0 - 0) Urine WBC 2-4 /HPF (0 - 0) Urine Squamous Epithelial Cells None /LPF (NONE/OCC) Urine Transitional Epithelial Cells Few /LPF (NONE) H Urine Amorphous Sediment Few /LPF (NONE) H Urine Bacteria None /HPF (NONE) White Blood Count 10.2 K/UL (4.8-10.8) Red Blood Count 3.23 M/UL (4.70-6.10) L Hemoglobin 11.5 G/DL (14.2-18.0) L Hematocrit 33.5 % (42.0-52.0) L Mean Corpuscular Volume 104 FL (80-99) H Mean Corpuscular Hemoglobin 35.5 PG (27.0-31.0) H Mean Corpuscular Hemoglobin Concent 34.2 G/DL (32.0-36.0) Red Cell Distribution Width 15.0 % (11.6-14.8) H Platelet Count 121 K/UL (150-450) L Mean Platelet Volume 9.7 FL (6.5-10.1) Neutrophils (%) (Auto) % (45.0-75.0) Lymphocytes (%) (Auto) % (20.0-45.0) Monocytes (%) (Auto) % (1.0-10.0) Eosinophils (%) (Auto) % (0.0-3.0) Basophils (%) (Auto) % (0.0-2.0) Differential Total Cells Counted 100 Neutrophils % (Manual) 92 % (45-75) H Lymphocytes % (Manual) 6 % (20-45) L Monocytes % (Manual) 2 % (1-10) Eosinophils % (Manual) 0 % (0-3) Basophils % (Manual) 0 % (0-2) Band Neutrophils 0 % (0-8) Platelet Estimate Decreased L Platelet Morphology Normal Hypochromasia 1+ Macrocytosis 1+ Prothrombin Time 10.1 SEC (9.30-11.50) Prothromb Time International Ratio 1.0 (0.9-1.1) Activated Partial Thromboplast Time 29 SEC (23-33) Sodium Level 133 mEQ/L (135-145) #L Potassium Level 3.6 mEQ/L (3.4-4.9) Chloride Level 98 mEQ/L (98-107) Carbon Dioxide Level 22 mEQ/L (20-30) Anion Gap 13 (5-15) Blood Urea Nitrogen 8 mg/dL (7-23) Creatinine 1.1 mg/dL (0.7-1.2) Estimat Glomerular Filtration Rate > 60 mL/min (>60) Glucose Level 118 mg/dL (74-106) H Calcium Level 6.9 mg/dL (8.6-10.2) L Total Bilirubin 3.2 mg/dL (0.0-1.2) H Direct Bilirubin 2.3 mg/dL (0.1-0.3) H Aspartate Amino Transf (AST/SGOT) 93 U/L (5-40) H Alanine Aminotransferase (ALT/SGPT) 30 U/L (3-41) Alkaline Phosphatase 158 U/L (40-129) H Pro-B-Type Natriuretic Peptide 6836 pg/mL (0-125) H Total Protein 5.6 g/dL (6.6-8.7) L Albumin 2.8 g/dL (3.5-5.2) L Globulin 2.8 g/dL Albumin/Globulin Ratio 1.0 (1.0-2.7) Amylase Level 37 U/L (10-110) Lipase 149 U/L (< 60) H Microbiology Date/Time Source Procedure Growth Status 03/19/17 18:10 Urine,Clean Catch Urine Culture - Preliminary NO GROWTH Resulted Objective NECK: Shows mild no JVD. LUNGS: Clear. CARDIOVASCULAR: Regular S1 and S2 with no gallop. Tachycardic. ABDOMEN: Soft. EXTREMITIES: Trace pitting edema. ONEIL MARTINI Mar 20, 2017 12:58
--- NOTE | 2017-03-21 02:00 | Consultation ---
DATE OF CONSULTATION: 03/20/2017 GASTROENTEROLOGY CONSULTATION CHIEF COMPLAINT: Pancreatitis. HISTORY OF PRESENT ILLNESS: This is a 42-year-old male with history of cardiomyopathy with low ejection fraction and history of alcoholism. He had binge drinking, had severe abdominal pain, and admitted to the hospital with acute pancreatitis. PAST MEDICAL HISTORY: 1. Nonischemic dilated cardiomyopathy. 2. Left bundle-branch block. 3. History of alcohol abuse. MEDICATIONS: Please see medication reconciliation list. ALLERGIES: No known drug allergies. SOCIAL HISTORY: The patient is . He has two children. He drinks alcohol and he had one episode of binge drinking recently. Denies any IV drug abuse. FAMILY HISTORY: Noncontributory. REVIEW OF SYSTEMS: A 10-point review of systems was performed and pertinent positives in history of present illness. PHYSICAL EXAMINATION: GENERAL: This is a well-developed male. VITAL SIGNS: Temperature is 98.1 degrees, pulse is 119, respirations 20, and blood pressure is 112/69. HEENT: Normocephalic and atraumatic. Sclerae anicteric. NECK: Supple. No lymphadenopathy. CARDIOVASCULAR: Regular rate and rhythm. Plus S1 and S2. No obvious murmur. LUNGS: Decreased breath sounds bilaterally based on the supine exam. ABDOMEN: Soft. Minimal tenderness to palpation in the epigastric and left upper quadrant. No rebound. No guarding. No peritoneal sign. EXTREMITIES: No cyanosis. No clubbing. No edema. LABORATORY DATA: White count 10, hemoglobin 11, hematocrit 33, and platelet count is 121,000. Chem-7, bilirubin is 3.2 and direct bilirubin is 2.3. AST of 93, ALT of 30, and alkaline phosphatase 158. ASSESSMENT AND PLAN: This is a 42-year-old male with alcoholic pancreatitis with abnormal liver function tests. We measured discriminant factor factor and it was not 32, so the patient is not a candidate for steroids. Also given there is no transaminitis, the patient does not need any Trental, but the patient will need an abdominal ultrasound to rule out gallstones as cause of pancreatitis on top of alcohol, given he has bilirubin of 3.2 and alkaline phosphatase was also elevated. The patient to be started on clear liquid diet for today and pain management and intravenous hydration. We will follow. Jaya Hussain Bustamante DR: EVELIO JOB#: [id number] CC:
--- NOTE | 2017-03-21 08:39 | Diagnostic Imaging Report ---
Indications: Abdominal pain Technique: Continuous helical CT imaging of the abdomen and pelvis was performed with automatic exposure control following administration of oral and intravenous nonionic iodine contrast, on a Siemens sensation [address] scanner. Axial, coronal, and sagittal images were reconstructed at 5 mm slice thickness. CTDI volume(s): 15 mGy Total DLP: 799 mGy-cm Findings: Comparison: None Oral contrast is passed throughout the gastrointestinal tract to the level of mid transverse colon. Mild distention of the second and third portions of duodenum with questionable mural thickening. Remainder of tract nondilated. Appendix unremarkable. Segment of left colon collapsed, limiting evaluation. Fluid and stranding adjacent to the duodenal sweep, pancreatic head and body, extending into right paracolic gutter. No extraluminal gas or loculated fluid collections demonstrated. Pancreas demonstrates homogeneous parenchymal enhancement. No obvious mass, loculated fluid collection, or duct dilation. Liver 24 cm, diffusely decreased in parenchymal attenuation. No obvious focal abnormality. Small accessory splenule. Scattered arterial mural calcifications without obvious flow-limiting stenosis or occlusion. Focal calcification of the nonenlarged prostate. Remainder visualized abdominopelvic anatomy demonstrates no other obvious acute abnormality. Minimal compressive changes in the dependent portions of both lung bases. Heart mildly enlarged. No focal skeletal abnormality identified. Impression: Findings most compatible with acute pancreatitis. No evidence of associated pancreatic necrosis, duct obstruction, pseudocyst, or abscess Duodenal findings as described most likely reactive to above. Intrinsic pathology not excludable. Recommend followup to resolution, endoscopy if persists. No other evidence of acute abdominopelvic disease, with limitation as described. Subtle but potentially significant abnormalities of the left colon may be missed. Consider colonoscopy as clinically indicated. Hepatomegaly with diffuse steatosis Arteriosclerosis Cardiomegaly This correlates with Dr. Siegel's preliminary report.
--- NOTE | 2017-03-21 13:19 | Discharge Summary ---
Discharge Summary Hospital Course Date of Admission Mar 18, 2017 at 20:47 Date of Discharge Mar 20, 2017 at 12:30 Admitting Diagnosis Pancreatitis HPI Librado Christian is a 42 year old male who was admitted on Mar 18, 2017 at 20:47 for Pancreatitis Hospital Course dc summary #[id number] Discharge Discharge Disposition Patient signed AMA Discharge Diagnoses: Discharge Instructions Discharge Instructions Special Instructions I have been assigned to complete a D/C Summary on this account. I was not involved in the patient management Zohra Olea NP (Vanchtein) Mar 21, 2017 13:19
--- NOTE | 2017-03-22 00:45 | Discharge Summary 2 SIG ---
DATE OF ADMISSION: 03/18/2017 DATE OF LEAVING AGAINST MEDICAL ADVISE : 03/20/2017 REASON FOR ADMISSION: 42-year-old male with history of cardiomyopathy with last known ejection fraction of 27% to 29%, alcohol abuse and complete left bundle-branch block presented to emergency department with complaint of abdominal pain. He reported nausea, but no vomiting. The patient reported being on drinking binge in [place]. He reported feeling weak. Unable to work. He did admit to long history of alcohol abuse and seeing housing specialist and psychiatrist for that reason. The patient denied suicidal ideation. In the emergency department, lipase -[id number]. ECG with complete left bundle branch. CBC with polycythemia. CT of the abdomen and pelvis revealed acute pancreatitis, but no evidence of associated pancreatic necrosis, obstruction, pseudocyst or abscess. GI consult was requested along with Cardiology consult. The patient admitted for further management. ADMITTING DIAGNOSES: 1. Acute alcoholic pancreatitis. 2. Nonischemic dilated cardiomyopathy. 3. Abdominal pain secondary to acute pancreatitis. 4. History of alcohol abuse. 5. Complete left bundle-branch block. 6. Polycythemia. HOSPITAL STAY: The patient admitted. The patient started on banana bag with IV thiamine and folic acid. Librium was given as needed. The patient was monitored for DT. The patient initially kept NPO. GI consult requested. Lipase was closely monitored. Gastrointestinal specialist ordered abdominal ultrasound to rule out gallstone pancreatitis and started the patient on clear liquid diet. The patient refused abdominal ultrasound. According to the GI, the patient was not a candidate for steroids and the patient did not meet any criteria for Trental. Pain management was addressed. The patient was an intravenous hydration, however, sodium was down to 122 on 03/19/2017. IV fluids discontinued. Electrolytes were closely monitored along with transaminase and bilirubin. AST elevated, ALT within normal limits and ratio AST to ALT more than 10. Pro BNP was 6836. The patient declined echocardiogram. Executive Sales Assistant seen and evaluated the patient. According to client relations associate, the patient had acute on chronic systolic dysfunction with ejection fraction 20% or more. The patient was optimized on medical therapy. The patient was on digoxin, OPAL inhibitor, beta-liu, Aldactone and Lasix. Per Cardiology, the patient would benefit from cardiac resynchronization therapy and ICD in view of underlying complete left bundle-branch block. However, the patient needs to stop drinking for at least three months prior to procedure and if ejection fraction remains less than 35%, he would benefit from defibrillator implantation. The patient also had a history of depression and was on Seroquel. Hyponatremia improved to 133 after discontinuation of the IV fluids. The patient decided to sign against medical advice. The risks and consequences of signing against medical advice were discussed with the patient, however, he insisted and signed the form. DISCHARGE DIAGNOSES: 1. Alcoholic pancreatitis. 2. History of alcohol abuse. 3. Acute on chronic systolic dysfunction. 4. Nonischemic dilated cardiomyopathy. 5. Complete left bundle-branch block. 6. Hyponatremia. 7. Polycythemia. 8. Depression. 9. Abdominal pain secondary to acute pancreatitis, resolved. Higinio Ponce M.D. I have been assigned to dictate discharge summary on this account and I was not involved in the patient's management. Zohra LoyaGouverneur HealthBridger N.PArleen DR: CHRISTIANO JOB#: [id number] CC: BEN
--- NOTE | 2017-03-23 16:28 | Cardiology Report ---
APPROVED REPORT EKG Measurement Heart [id number] Sinus tachycardia Possible Left atrial enlargement Left axis deviation Left bundle branch block Abnormal ECG
== END 2017-03-20 12:30 | disposition left against medical advice (07) | DRG 438 ==
LOC: EDBD 16:30 → EMR 18:15 → 2E 20:47 → EDBEDREQ 21:37 → 4E 23:19 → 2E 03-19 00:45
DX: K85.20 Alcohol induced acute pancreatitis without necrosis or infection (principal); I50.23 Acute on chronic systolic (congestive) heart failure; N17.9 Acute kidney failure, unspecified; I42.0 Dilated cardiomyopathy; D75.1 Secondary polycythemia; E87.1 Hypo-osmolality and hyponatremia; F10.20 Alcohol dependence, uncomplicated; I44.7 Left bundle-branch block, unspecified; F32.9 Major depressive disorder, single episode, unspecified
CPT/HCPCS: 36415; 74177; 80053; 80162; 80300; 80329; 81001; 81003; 82150; 82248; 83690; 83880; 85007; 85025; 85610; 85730; 87086; 93005; J2405